=== PATIENT | male | born 1955 | race Two or more races ===

== ENCOUNTER 2018-08-08 09:19 | Day surgery (SDC) | payer BC ==
[~2018-08-08] VITALS: Ht 162.6 cm; Wt 88.1 kg
[2018-08-08] VITALS (10 sets, daily range): BP systolic 104–155; BP diastolic 67–94
[2018-08-08] MEDS ORDERED: diphenhydrAMINE 25mg capsule PO PRN (09:45)
[2018-08-08] MEDS ORDERED: sod bicarbonate 150mEq in D5W 1,150 ML IV ONE (09:45)
[2018-08-08 11:11] LABS: BASOPHILS # (AUTO) 0.1 X10'3 (0-0.2); EOSINOPHILS # (AUTO) 0.4 X10'3 (0-0.9); EOSINOPHILS % (AUTO) 5.8 % (0-6); LYMPHOCYTES # (AUTO) 1.5 X10'3 (1.1-4.8); LYMPHOCYTES % (AUTO) 23.3 % (21-51); MEAN CORPUSCULAR HEMOGLOBIN 22.9 PG (27.0-31.0); MEAN CORPUSCULAR HGB CONC 31.1 % (33.0-36.5); MEAN CORPUSCULAR VOLUME 73.8 FL (78-98); MEAN PLATELET VOLUME 7.2 FL (7.4-10.4); MONOCYTES # (AUTO) 0.6 X10'3 (0-0.9); MONOCYTES % (AUTO) 8.9 % (2-12); NEUTROPHILS # (AUTO) 3.8 X10'3 (1.8-7.7); PRE OP HEMATOCRIT 42.6 % (42.0-52.0); PRE OP HEMOGLOBIN 13.2 g/dL (14.0-17.9); PRE OP PLATELET COUNT 269 X10'3 (140-440); RED BLOOD COUNT 5.77 X10'6 (4.70-6.10); RED CELL DISTRIBUTION WIDTH 15.3 % (11.5-14.5)
[2018-08-08] MEDS ORDERED: CLOP75TA33 PO (11:12)
[2018-08-08] MEDS ORDERED: ASCO500C15 PO (11:12)
[2018-08-08] MEDS ORDERED: ATOR40TA71 PO (11:12)
[2018-08-08] MEDS ORDERED: ASPI-1265 PO (11:12)
[2018-08-08] MEDS ORDERED: MV,C1TAB34 PO (11:12)
[2018-08-08] MEDS ORDERED: LISI10TA4 PO (11:12)
[2018-08-08] MEDS ORDERED: METO50TA7 PO (11:12)
[2018-08-08] MEDS ORDERED: KRIL500C PO (11:12)
[2018-08-08 11:23] LABS: ALBUMIN 3.4 G/DL (3.4-5.0); ANION GAP 11 (8-16); BLOOD UREA NITROGEN 11 MG/DL (7-18); BUN/CREATININE RATIO 13.4 (5.4-32.0); CALCIUM 7.8 MG/DL (8.5-10.1); CHLORIDE 104 MMOL/L (99-107); CREATININE 0.82 MG/DL (0.60-1.10); GLUCOSE 98 MG/DL (70-104); MAGNESIUM 1.8 MG/DL (1.5-2.4); POTASSIUM 3.7 MMOL/L (3.5-5.1); SODIUM 141 MMOL/L (135-145); TOTAL CARBON DIOXIDE 26.1 MMOL/L (24-32); eGFR > 90 ML/MIN
[2018-08-08 11:28] LABS: PROTHROMBIN TIME 9.9 SECONDS (9.0-12.0)
[2018-08-08] MEDS ORDERED: iohexol 350MG/ML 100ml bottle IV ONE (11:47)
[2018-08-08] MEDS ORDERED: iohexol 350 MG/ML 50ML vial IV ONE (11:47)
[2018-08-08] MEDS ORDERED: LIDOcaine 1% 30ml preserv. free vial ONE (11:47)
[2018-08-08] MEDS ORDERED: fentaNYL/PF 50MCG/1 ML 2ML syringe ONE (11:47)
[2018-08-08] MEDS ORDERED: midazolam 2 mg/2 ml injection ONE ×2 (11:47→12:19)
== END 2018-08-08 16:02 | disposition home or self-care (01) ==
LOC: SSTAY O 09:19
PROVIDERS: ATTEND Internal Medicine Cardiovascular Disease
DX: I25.10 Atherosclerotic heart disease of native coronary artery without angina pectoris (principal); I10 Essential (primary) hypertension; E78.5 Hyperlipidemia, unspecified; G47.33 Obstructive sleep apnea (adult) (pediatric); I44.7 Left bundle-branch block, unspecified; Z23 Encounter for immunization; Z95.5 Presence of coronary angioplasty implant and graft; Z79.82 Long term (current) use of aspirin; Z87.891 Personal history of nicotine dependence; Z79.899 Other long term (current) drug therapy; Z98.890 Other specified postprocedural states; Z82.49 Family history of ischemic heart disease and other diseases of the circulatory system
CPT/HCPCS: 36415; 80048; 83735; 85025; 85610; 93005; 93458; 99152; 99153; A6257; C1760; C1769; C1894; G0008; J1644; J2250; J3010; J3490; Q0163; Q2037; Q9967